=== PATIENT | male | born 1970 | race Caucasian/White ===

== ENCOUNTER 2018-03-18 02:06 | Emergency (ER) | payer SELFPAY ==
[~2018-03-18] VITALS: Ht 172.7 cm; Wt 74.8 kg
--- NOTE | 2018-03-18 02:15 | NUR ---
PT BIBLAPD/ RA PT IN CUSTODY HERE AFTER TAZED IN THE ABDOMEN, DELUSIONAL; DENIES SI/HI. PT AOX3 RR EVEN AND UNLABORED. NO SOB NOTED. NAD NOTED. NO NVD AT THIS TIME. PT GOWNED AND PLACED ON MONITOR WAITING FOR MD PIPER.
--- NOTE | 2018-03-18 02:21 | NUR ---
TAZER PRONG REMOVED PER MD ON MID ABD, NO BLEEDING NOTED. PRESSURE GAUZE APPLIED.
[2018-03-18] MEDS ORDERED: OLANZAPINE 5 MG TABLET ONE (02:22)
[2018-03-18] MEDS ORDERED: OLANZAPINE 5 MG TABLET PO ONE (02:30)
--- NOTE | 2018-03-18 02:44 | NUR ---
LAB AT BEDSIDE FOR BLOOD DRAW.
[2018-03-18 02:54] LABS: BASOPHILS % (AUTO) 0.5 % (0.0-2.0); EOSINOPHILS % (AUTO) 0.2 % (0.0-6.0); HEMATOCRIT 42 % (39-51); HEMOGLOBIN 14.3 g/dL (13.5-17.5); LYMPHOCYTES # (AUTO) 1.9 /CMM (0.8-4.8); LYMPHOCYTES % (AUTO) 18.9 % (20.0-44.0); MEAN CORPUSCULAR HGB CONC 34 g/dl (31.0-36.0); MEAN CORPUSCULAR VOLUME 92 fL (80-96); MONOCYTES # (AUTO) 1.1 /CMM (0.1-1.30); MONOCYTES % (AUTO) 11.3 % (2.0-12.0); NEUTROPHILS % (AUTO) 69.1 % (43.0-81.0); PLATELET COUNT (AUTO) 222 /CMM (150-450); RDW COEFFICIENT OF VARIATION 13.3 (11.5-15.0); WHITE BLOOD COUNT (AUTO) 10.2 K/uL (4.3-11.0)
[2018-03-18 03:04] LABS: CALCIUM, SERUM 8.9 mg/dL (8.5-10.1); CARBON DIOXIDE 23 mmol/L (21-32); CHLORIDE 103 mmol/L (98-107); CREATININE 1.1 mg/dL (0.6-1.3); GLUCOSE 119 mg/dL (74-106); POTASSIUM 4.1 mmol/L (3.5-5.1); SODIUM SERUM 141 mmol/L (136-145); UREA NITROGEN, BLOOD 18 mg/dL (7-18)
[2018-03-18 03:09] LABS: ALANINE AMINOTRANSFERASE 41 U/L (12-78); ALBUMIN 3.8 g/dL (3.4-5.0); ALCOHOL, BLOOD < 3 mg/dL (0-0); ALKALINE PHOSPHATASE 78 U/L (46-116); ASPARTATE AMINOTRANSFERASE 46 U/L (15-37); BILIRUBIN,DIRECT 0.3 mg/dL (0.0-0.2); BILIRUBIN,TOTAL 1.1 mg/dL (0.2-1.0); SALICYLATE 7.7 mg/dL (2.8-20.0); TOTAL PROTEIN, SERUM 7.4 g/dL (6.4-8.2)
[2018-03-18 03:13] LABS: ACETAMINOPHEN 0 ug/ml (10-30)
--- NOTE | 2018-03-18 03:51 | NUR ---
URINE COLLECTED. CALLED LAB FOR [place].
[2018-03-18 04:27] LABS: APPEARANCE,URINE CLEAR (CLEAR); BILIRUBIN,URINE 3+ (NEGATIVE); BLOOD, URINE 2+ Ery/uL (NEGATIVE); COLOR,URINE BROWN (YELLOW); KETONES,URINE 2+ (NEGATIVE); LEUKOCYTE ESTERASE ,URINE NEGATIVE (NEGATIVE); NITRITE, URINE NEGATIVE (NEGATIVE); PROTEIN,URINE 2+ mg/dl (NEGATIVE); UGLUCOSE NEGATIVE (NEGATIVE)
[2018-03-18 04:35] LABS: RBC,URINE 21-50 /HPF (0-2)
[2018-03-18 04:36] LABS: BACTERIA,URINE Few /HPF (None Seen); WBC,URINE 0-2 /HPF (0-3)
[2018-03-18 04:37] LABS: MUCUS,URINE Moderate /LPF (None Seen); SPERM,URINE Moderate /HPF (None Seen); SQUAMOUS EPITHELIAL CELL,UR Rare /HPF (None Seen)
--- NOTE | 2018-03-18 06:57 | NUR ---
REPORT GIVEN TO CANDELARIO ORTIZ FOR MARK ANTHONY.
--- NOTE | 2018-03-18 07:00 | NUR ---
Patient is resting comfortably in bed with eyes closed. Easily aroused. VSS
--- NOTE | 2018-03-18 08:20 | NUR ---
SAUL ARIZA CALLED [phone] ETA ~ 60 MIN
--- NOTE | 2018-03-18 09:00 | NUR ---
Patient is resting comfortably in bed with eyes closed. Easily aroused. VSS
[2018-03-18 10:20] VITALS: BP 122/63
--- NOTE | 2018-03-18 10:21 | NUR ---
PT CLEARED BY GRETTA PALOMINO, PT DC IN STABLE CONDITION. AMBULATORY WITH STEADY GAIT. PT VERBALIZED UNDERSTANDING OF DC INSTRUCTIONS. REFERRALS GIVEN. NO FURTHER COMPLAINTS.
== END 2018-03-18 10:21 | disposition home or self-care (01) ==
LOC: ER 02:07
DX: R44.2 Other hallucinations (principal)
CPT/HCPCS: 36415; 80048; 80076; 80305; 80329; 81001; 85025; 93005; 99285; A4606; G0480 ×2; Z7610; 81000-TC

== ENCOUNTER 2018-03-18 18:01 | Emergency (ER) | payer SELFPAY ==
[~2018-03-18] VITALS: Ht 185.4 cm; Wt 72.6 kg
[2018-03-18 18:08] VITALS: BP 131/68
--- NOTE | 2018-03-18 19:50 | NUR ---
CALLED PT NAME X3 IN WR. NO ONE IN WR AT THIS TIME.
--- NOTE | 2018-03-18 20:08 | NUR ---
PER ADMITTING PT LEFT WR.
--- NOTE | 2018-03-18 20:24 | NUR ---
STILL NOT BACK IN LOBBY AT THIS TIME.
== END 2018-03-18 20:25 | disposition left against medical advice (07) ==
LOC: ER 18:03
DX: Z53.21 Procedure and treatment not carried out due to patient leaving prior to being seen by health care provider (principal); R52 Pain, unspecified
CPT/HCPCS: A4606; A6402; Z7610